=== PATIENT | female | born 1985 ===

== ENCOUNTER 2017-09-22 03:21 | Emergency (ER) | payer OTHER ==
[2017-09-22 03:33] VITALS: RESP 14
[2017-09-22] MEDS ORDERED: Acetaminophen-Codeine 300/30 mg Tab PO STA (03:52)
--- NOTE | 2017-09-22 03:58 | C.PDOC ---
History Of Present Illness 32 year old female presents to the ER with a complaint of a lump to the right side of the vagina for the past 2 days. Patient states the lump and increased in size and has now become painful. Denies trauma or Hx of similar symptoms. Time Seen by Provider: 09/22/17 03:37 Chief Complaint (Nursing): Female Genitourinary History Per: Patient History/Exam Limitations: no limitations Onset/Duration Of Symptoms: Days Current Symptoms Are (Timing): Still Present Quality Of Discomfort: Unable To Describe Associated Symptoms: denies: Fever, Chills, Urinary Symptoms Alleviating Factors: None Recent travel outside of the [place]: No Abnormal Vaginal Bleeding: No Past Medical History Reviewed: Historical Data, Nursing Documentation, Vital Signs Vital Signs: Last Vital Signs Temp 98 F 09/22/17 04:19 Pulse 80 09/22/17 04:19 Resp 14 09/22/17 04:19 BP 110/70 09/22/17 04:19 Pulse Ox 99 09/22/17 04:26 - Medical History PMH: No Chronic Diseases Family History: States: Unknown Family Hx - Social History Hx Tobacco Use: Yes Hx Alcohol Use: Yes Hx Substance Use: No - Immunization History Hx Tetanus Toxoid Vaccination: No Hx Influenza Vaccination: Yes Hx Pneumococcal Vaccination: No Review Of Systems Constitutional: Negative for: Fever, Chills Gastrointestinal: Negative for: Nausea, Vomiting Genitourinary: Positive for: Other (Lump on vagina). Negative for: Vaginal Discharge, Vaginal Bleeding Physical Exam - Physical Exam Appears: Non-toxic Skin: Warm, Dry Head: Atraumatic, Normacephalic Eye(s): bilateral: Normal Inspection Back: Normal Inspection Pelvic: Other (Small indurated tender lump to base of right labia near perineum. No erythema,fluctuance or drainage.) ED Course And Treatment O2 Sat by Pulse Oximetry: 99 (room air) Pulse Ox Interpretation: Normal Progress Note: Motrin and tylenol/codiene administered. Disposition Counseled Patient/Family Regarding: Diagnosis, Need For Followup - Disposition Disposition: HOME/ ROUTINE Disposition Time: 03:53 Condition: STABLE Additional Instructions: Please continue warm compress to area Follow up in [facility] Take meds as directed Return to ER if worse Prescriptions: Acetaminophen with Codeine [Tylenol with Codeine #3 Tablet] 1 each PO PRN PRN # 7 tablet PRN Reason: Pain, Severe (8-10) Cephalexin [Keflex] 500 mg PO QID #28 capsule Ibuprofen [Motrin] 600 mg PO Q6H #20 tab Sulfamethoxazole/Trimethoprim [Bactrim DS 800 mg-160 mg] 1 tab PO BID #14 tab Instructions: Bartholin Cyst (ED) Forms: [employer] (Czech) - Clinical Impression Clinical Impression: Cyst of right Bartholin's gland - PA / [employer]ER / Resident Statement MD/DO has reviewed & agrees with the documentation as recorded. - Scribe Statement The provider has reviewed the documentation as recorded by the Scribe Luis Ramírez All medical record entries made by the Meño were at my direction and personally dictated by me. I have reviewed the chart and agree that the record accurately reflects my personal performance of the history, physical exam, medical decision making, and the department course for this patient. I have also personally directed, reviewed, and agree with the discharge instructions and disposition.
[2017-09-22] MEDS ORDERED: Acetaminophen-Codeine 300/30 mg Tab PO ONE (04:03)
[2017-09-22 04:20] VITALS: BP 110/70; PULSE 80; TEMP 98
[2017-09-22 04:27] VITALS: O2SAT 99
== END 2017-09-22 04:47 | disposition home or self-care (01) ==
LOC: C.ER 03:21
DX: N75.0 Cyst of Bartholin's gland (principal)

== ENCOUNTER 2017-09-23 11:10 | Emergency (ER) | payer OTHER ==
[2017-09-23 11:21] VITALS: RESP 16
--- NOTE | 2017-09-23 13:58 | C.PDOC ---
History Of Present Illness Juve Pereira is a 32 year old female who returns to the ER for evaluation of abscess. Seen here the other day for early abscess on the right outer labia. Patient reports taking antibiotics as prescribed. Complains of pain and bleeding from the abscess today. No fevers or chills. Time Seen by Provider: 09/23/17 12:11 Chief Complaint (Nursing): Abnormal Skin Integrity History Per: Patient History/Exam Limitations: no limitations Onset/Duration Of Symptoms: Days Current Symptoms Are (Timing): Still Present Location Of Injury: Right: Labia Quality Of Symptoms: Draining Past Medical History Reviewed: Historical Data, Nursing Documentation, Vital Signs Vital Signs: Last Vital Signs Temp 98.3 F 09/23/17 14:13 Pulse 88 09/23/17 14:13 Resp 16 09/23/17 14:13 BP 100/58 L 09/23/17 14:13 Pulse Ox 100 09/23/17 22:07 - Medical History PMH: No Chronic Diseases Surgical History: No Surg Hx Family History: States: Unknown Family Hx - Social History Hx Tobacco Use: Yes Hx Alcohol Use: Yes Hx Substance Use: Yes - Immunization History Hx Tetanus Toxoid Vaccination: (unk) Hx Influenza Vaccination: Yes (2016) Hx Pneumococcal Vaccination: (unk) Review Of Systems Constitutional: Negative for: Fever, Chills Skin: Positive for: Other (Abscess to right labia) Physical Exam - Physical Exam Appears: Non-toxic, No Acute Distress Skin: Normal Color, Warm, Other (1 cm round, draining, abscess at distal end of right labia. Able to express purulent drainage.) Gastrointestinal/Abdominal: Soft, No Tenderness Neurological/Psych: Oriented x3, Normal Speech ED Course And Treatment O2 Sat by Pulse Oximetry: 100 (RA) Pulse Ox Interpretation: Normal Medical Decision Making Medical Decision Making: Impression: Pt with draining abscess on outer labia Plan: Advised to use warm compresses, sitz baths, ibuprofen and continue antibiotics. Disposition Counseled Patient/Family Regarding: Diagnosis, Need For Followup - Disposition Referrals: [facility] [Outside] [facility] [Outside] Disposition: HOME/ ROUTINE Disposition Time: 13:56 Condition: IMPROVED Additional Instructions: [place] use sitz baths or apply warm compresses to affected area to promote further drainage. Finish all antibiotics, Take ibuprofen for pain. Follow up with CIGARETTE EXAMINER; call for an appointment. Forms: [facility] (Equatorial [place]an), General Discharge Instructions - Clinical Impression Clinical Impression: Abscess - PA / CRITICAL CARE RN / Resident Statement MD/DO has reviewed & agrees with the documentation as recorded. - Scribe Statement The provider has reviewed the documentation as recorded by the Scribe (Edna Peace) All medical record entries made by the Scribe were at my direction and personally dictated by me. I have reviewed the chart and agree that the record accurately reflects my personal performance of the history, physical exam, medical decision making, and the department course for this patient. I have also personally directed, reviewed, and agree with the discharge instructions and disposition.
[2017-09-23 14:17] VITALS: BP 100/58; PULSE 88; TEMP 98.3; O2SAT 100
== END 2017-09-23 14:12 | disposition home or self-care (01) ==
LOC: C.ER 11:10
DX: N76.4 Abscess of vulva (principal); Z87.891 Personal history of nicotine dependence

== ENCOUNTER 2017-09-25 20:42 | Emergency (ER) | payer OTHER ==
[2017-09-25 21:13] VITALS: BP 98/66; PULSE 78; TEMP 98.6; O2SAT 100
--- NOTE | 2017-09-25 21:42 | C.PDOC ---
History Of Present Illness Patient is a 32 y/o female who presents to the ED with a complaint of a possible allergic reaction to antibiotics since Monday. Patient reports to currently be taking Keflex and Bactrim; reports that 2 days after beginning medications, patient felt tightness around facial area and minimal swelling. Denies SOB or CP. No other physical complaints at this time. Time Seen by Provider: 09/25/17 21:16 Chief Complaint (Nursing): Allergic Reaction History Per: Patient History/Exam Limitations: no limitations Onset/Duration Of Symptoms: Days (since Monday) Current Symptoms Are (Timing): Still Present Possible Cause: Medication (Keflex and Bactrim) Associated Symptoms: Swelling (facial area) Recent travel outside of the [place]: No Additional History Per: Patient Past Medical History Reviewed: Historical Data, Nursing Documentation, Vital Signs Vital Signs: Last Vital Signs Temp 98.6 F 09/25/17 21:12 Pulse 78 09/25/17 21:12 Resp 20 09/25/17 22:00 BP 98/66 L 09/25/17 21:12 Pulse Ox 100 09/25/17 23:03 - Medical History PMH: No Chronic Diseases Surgical History: No Surg Hx Family History: States: No Known Family Hx - Social History Hx Tobacco Use: Yes Hx Alcohol Use: Yes Hx Substance Use: Yes - Immunization History Hx Tetanus Toxoid Vaccination: No Hx Influenza Vaccination: Yes Hx Pneumococcal Vaccination: No Review Of Systems Cardiovascular: Positive for: Edema (to facial area). Negative for: Chest Pain Respiratory: Negative for: Shortness of Breath Skin: Positive for: Other ("tightness" to facial area) Physical Exam - Physical Exam Appears: Well, Non-toxic, No Acute Distress Skin: Normal Color, Dry (facial area), No Rash Head: Atraumatic, Normacephalic Eye(s): bilateral: Normal Inspection, PERRL, EOMI, Other (minimal swelling to infraorbital areas bilaterally) Oral Mucosa: Moist Tongue: Normal Appearing, No Swelling Lips: Normal Appearing, No Swelling Throat: Normal Chest: Symmetrical Cardiovascular: Rhythm Regular, No Murmur Respiratory: Normal Breath Sounds, No Rales, No Rhonchi, No Wheezing Neurological/Psych: Oriented x3, Normal Speech, Normal Cognition ED Course And Treatment O2 Sat by Pulse Oximetry: 100 (room air) Pulse Ox Interpretation: Normal Progress Note: Benadryl administered. On Re-eval, patient is in no distress. Patient is advised to stop Bactrim first to see if symtoms subside; if symptoms worsen, patient is advised to stop Keflex. Benadryl is to be taken with mild symptoms. Patient to be discharged. Disposition - Disposition Disposition: HOME/ ROUTINE Disposition Time: 21:39 Condition: STABLE Additional Instructions: D/C bactrim first continue keflex Take PO benadryl If moderate face / lip or tongue swelling, difficulty breathing you may stop the other antibiotic ( Cephalexin as well) Please follow up with PMD Return to ER if worse Prescriptions: DiphenhydrAMINE [Benadryl] 25 mg PO TID #14 cap Instructions: Allergies (ED) Forms: [employer] (Icelandic) - Clinical Impression Clinical Impression: Minor allergic reaction - Scribe Statement The provider has reviewed the documentation as recorded by the Scribe Yessica Osuna All medical record entries made by the Scribe were at my direction and personally dictated by me. I have reviewed the chart and agree that the record accurately reflects my personal performance of the history, physical exam, medical decision making, and the department course for this patient. I have also personally directed, reviewed, and agree with the discharge instructions and disposition.
[2017-09-25 22:01] VITALS: RESP 20
== END 2017-09-25 22:00 | disposition home or self-care (01) ==
LOC: C.ER 20:42
DX: T78.40XA Allergy, unspecified, initial encounter (principal); Z87.891 Personal history of nicotine dependence

== ENCOUNTER 2018-11-23 18:20 | Emergency (ER) | payer OTHER ==
[2018-11-23 18:24] VITALS: BMI 21.7
[2018-11-23 18:28] VITALS: RESP 18
--- NOTE | 2018-11-23 18:59 | C.PDOC ---
History Of Present Illness 33yo female, otherwise well, comes to ER reporting chills, bodyaches, and vomiting x 2 days. Patient has been taking OTC medications with no relief of symptoms. Patient denies any recent travels but states a coworker was recently ill. No additional medical complaints. PMD: None Time Seen by Provider: 11/23/18 18:39 Chief Complaint (Nursing): Abdominal Pain History Per: Patient History/Exam Limitations: no limitations Onset/Duration Of Symptoms: Days (2) Current Symptoms Are (Timing): Still Present Sick Contacts (Context): Individual(s) At Work Associated Symptoms: Fever, Chills, Myalgias, Vomiting Additional History Per: Patient Past Medical History Reviewed: Historical Data, Nursing Documentation, Vital Signs Vital Signs: Last Vital Signs Temp 98.5 F 11/23/18 18:24 Pulse 90 11/23/18 18:24 Resp 18 11/23/18 18:24 BP 102/65 11/23/18 18:24 Pulse Ox 96 11/23/18 18:24 - Medical History PMH: No Chronic Diseases Surgical History: No Surg Hx Family History: States: No Known Family Hx - Social History Hx Tobacco Use: Yes Hx Alcohol Use: No Hx Substance Use: No - Immunization History Hx Tetanus Toxoid Vaccination: No Hx Influenza Vaccination: No Hx Pneumococcal Vaccination: No Review Of Systems Except As Marked, All Systems Reviewed And Found Negative. Cardiovascular: Negative for: Chest Pain Respiratory: Negative for: Shortness of Breath Physical Exam - Physical Exam Additional Physical Exam Comments: Constitutional: No acute distress. Head: Normocephalic. Atraumatic. Eyes: PERRL. ENT: Moist mucous membranes. Neck: Supple. Cardiovascular: Regular rate. Radial pulse 2+ bilaterally. Chest: No tenderness. Respiratory: Clear to auscultation bilaterally. GI: Soft. Nontender. Nondistended. Back: No CVA tenderness. Musculoskeletal: No tenderness or swelling of extremities. Skin: No rash. Neurologic: Alert, no focal deficit. ED Course And Treatment - Laboratory Results Result Diagrams: 11/23/18 19:30 11/23/18 19:30 O2 Sat by Pulse Oximetry: 96 (RA) Pulse Ox Interpretation: Normal Medical Decision Making Medical Decision Mak[place] female with flu like illness Plan: -- Labs -- IV Fluids -- Rapid flu -- Zofran 8mg IV -- Toradol 30mg IV Labs unremarkable. CXR no pneumonia. Discharged home, continue supportive care, return to ED for worsening pain, lethargy, vomiting, dyspnea, or any other problem. Disposition - Disposition Referrals: [facility] [Outside] Disposition: HOME/ ROUTINE Disposition Time: 21:17 Condition: STABLE Prescriptions: Ibuprofen [Motrin] 1 tab PO Q6 #30 tab Ondansetron ODT [Zofran ODT] 4 mg PO Q8 #12 odt Instructions: Viral Syndrome (DC) Forms: [email or web address] (Liberian) - Clinical Impression Clinical Impression: Influenza-like illness - Scribe Statement The provider has reviewed the documentation as recorded by the Meño Bardales Provider Attestation: All medical record entries made by the Meño were at my direction and personally dictated by me. I have reviewed the chart and agree that the record accurately reflects my personal performance of the history, physical exam, medical decision making, and the department course for this patient. I have also personally directed, reviewed, and agree with the discharge instructions and disposition.
[2018-11-23] MEDS ORDERED: Sodium Chloride 0.9% 1,000 ML IV STA (19:01)
[2018-11-23 19:04] LABS: SQUAMOUS EPITHIAL 2 /hpf (0-5); URINE BILIRUBIN NEGATIVE (NEGATIVE); URINE BLOOD NEGATIVE (NEGATIVE); URINE CLARITY Hazy (Clear); URINE COLOR Amber (YELLOW); URINE GLUCOSE (UA) NORMAL (Normal); URINE LEUKOCYTE ESTERASE TRACE Leu/uL (Negative); URINE PROTEIN 1+ mg/dL (NEGATIVE)
[2018-11-23] MEDS ORDERED: Sodium Chloride 0.9% 1,000 ML ONE (19:24)
[2018-11-23 19:33] LABS: BASO % 0.6 % (0.0-2.0); EOS # 0.1 K/uL (0.0-0.7); EOS % 1.3 % (0.0-4.0); HEMOGLOBIN 12.5 g/dL (11.0-16.0); LYMPH # 1.5 K/uL (1.0-4.3); MEAN CELL VOLUME 93.1 fL (81.0-99.0); MEAN CORPUSCULAR HEMOGLOBIN 30.2 pg (27.0-31.0); MEAN CORPUSCULAR HGB CONC 32.4 g/dL (33.0-37.0); MEAN PLATELET VOLUME 8.9 fL (7.2-11.7); MONO # 0.6 K/uL (0.0-0.8); MONO % 14.2 % (0.0-10.0); NEUT # 2.1 K/uL (1.8-7.0); NEUT % 49.9 % (50.0-75.0); NRBC % 0.1 % (0.0-2.0); RBC 4.15 Mil/uL (3.80-5.20); RED CELL DISTRIBUTION WIDTH 12.6 % (11.5-14.5); WHITE BLOOD COUNT 4.3 K/uL (4.8-10.8)
[2018-11-23 19:44] LABS: ALB/GLOB RATIO 1.4 (1.0-2.1); ALBUMIN 4.5 g/dL (3.5-5.0); ALT/SGPT 25 U/L (9-52); AST/SGOT 31 U/L (14-36); BLOOD UREA NITROGEN 8 mg/dL (7-17); CALCIUM 8.8 mg/dl (8.6-10.4); GFR NON-AFRICAN AMERICAN > 60; LIPASE 65 U/L (23-300)
[2018-11-23 21:33] VITALS: BP 108/74; PULSE 82; TEMP 98.6
[2018-11-23 22:57] VITALS: O2SAT 96
--- NOTE | 2018-11-24 13:49 | RAD ---
Date of service: 11/23/2018 HISTORY: cough COMPARISON: No prior. TECHNIQUE: Chest PA and lateral FINDINGS: LUNGS: No active pulmonary disease. PLEURA: No significant pleural effusion identified. No pneumothorax apparent. CARDIOVASCULAR: No aortic atherosclerotic calcification present. Normal cardiac size. No pulmonary vascular congestion. OSSEOUS STRUCTURES: No significant abnormalities. VISUALIZED UPPER ABDOMEN: Normal. OTHER FINDINGS: None. IMPRESSION: NO RADIOGRAPHIC EVIDENCE OF PNEUMONIA
== END 2018-11-23 21:32 | disposition home or self-care (01) ==
LOC: C.ER 18:20
DX: J11.1 Influenza due to unidentified influenza virus with other respiratory manifestations (principal)
CPT/HCPCS: 71046; 80053; 81001; 81025; 83690; 85025; 87086; 87804; 96361; 96374; 96375; 99284; J1885; J2405; J7030

== ENCOUNTER 2018-12-05 10:06 | Emergency (ER) | payer OTHER ==
[2018-12-05 10:06] VITALS: BMI 21.7
[2018-12-05 11:06] LABS: HCG,QUALITATIVE URINE NEGATIVE (NEGATIVE)
[2018-12-05 11:10] LABS: SQUAMOUS EPITHIAL 7 /hpf (0-5); URINE BILIRUBIN 1+ (NEGATIVE); URINE BLOOD NEGATIVE (NEGATIVE); URINE CLARITY Hazy (Clear); URINE COLOR Yellow (YELLOW); URINE GLUCOSE (UA) NORMAL (Normal); URINE LEUKOCYTE ESTERASE NEG Leu/uL (Negative); URINE PROTEIN 1+ mg/dL (NEGATIVE); URINE UROBILINOGEN NORMAL mg/dL (0.2-1.0)
[2018-12-05 11:44] LABS: BARBITURATES, UR NEGATIVE (NEGATIVE); BENZODIAZEPINES, UR NEGATIVE (NEGATIVE); OPIATES, UR NEGATIVE (NEGATIVE); PHENCYCLIDINE, UR NEGATIVE (NEGATIVE)
--- NOTE | 2018-12-05 12:31 | MRI ---
Date of service: 12/05/2018 PROCEDURE: MR LUMBAR SPINE WITHOUT CONTRAST HISTORY: Left lower back pain and numbness COMPARISON: None available. TECHNIQUE: Multiecho multiplanar sequences were performed through the lumbar spine without the use of intravenous contrast. FINDINGS: There is normal alignment of the lumbar vertebral bodies. There is normal lumbar lordosis. There is no acute fracture, spondylolysis or spondylolisthesis. Bone marrow signal is within normal limits. The conus medullaris terminates at a normal level and the nerve roots of cauda equina are normal. There is degeneration of the L5-S1 disc with mild reduced disc height. The remaining disc heights and signal intensity are maintained. T12-L1: No disc herniation, spinal canal stenosis or neural foraminal narrowing. L1-2: No disc herniation, spinal canal stenosis or neural foraminal narrowing. L2-3: No disc herniation, spinal canal stenosis or neural foraminal narrowing. L3-4: No disc herniation, spinal canal stenosis or neural foraminal narrowing. L4-5: Mild posterior disc bulge without central spinal canal stenosis. Mild bilateral facet arthropathy without neural foraminal narrowing. L5-S1: Large left paracentral and posterolateral disc protrusion impinges the traversing left S1 nerve root. No central spinal canal stenosis. Mild bilateral facet arthropathy contribute to mild the left neural foraminal narrowing. OTHER FINDINGS: The paraspinous soft tissues are normal. Imaged portion of the retroperitoneum is within normal limits. IMPRESSION: Large left paracentral and posterolateral disc protrusion impinges the traversing left S1 nerve root. No central spinal canal stenosis or neural foraminal narrowing.
[2018-12-05 13:07] VITALS: TEMP 98
--- NOTE | 2018-12-05 13:19 | C.PDOC ---
History Of Present Illness 33 y/o female otherwise well presents to the ED complaining of excruciating back pain, worsening for the past 4-5 days. States she went to see a physician/chiropractor on 2 days ago, who gave her two injections to the left paraspinal/lumbar region. Patient was told they were steroid injections, and that it would take 1-2 days to kick in. Yesterday the pain continued. Today she awoke with worsened pain, now radiating down the left leg with associated numbness. She reports 10/10 pain in the low back and left leg. States today she is unable to stand, and only tolerates lying flat on the floor. Otherwise she denies any extremity weakness, dysuria, frequency, incontinence, fever, neck pain/stiffness, nausea, or vomiting. Time Seen by Provider: 12/05/18 10:23 Chief Complaint (Nursing): Back Pain History Per: Patient History/Exam Limitations: no limitations Onset/Duration Of Symptoms: Days (4) Current Symptoms Are (Timing): Worse Severity: Severe Pain Scale Rating Of: 10 Associated Symptoms: New Numbness (down left leg) Exacerbating Factor(s): Movement, Standing Past Medical History Reviewed: Historical Data, Nursing Documentation, Vital Signs Vital Signs: Last Vital Signs Temp 98.0 F 12/05/18 13:07 Pulse 58 L 12/05/18 13:07 Resp 18 12/05/18 13:07 BP 104/64 12/05/18 13:07 Pulse Ox 100 12/05/18 13:07 - Medical History PMH: No Chronic Diseases Surgical History: No Surg Hx Family History: States: Unknown Family Hx - Social History Hx Tobacco Use: Yes Hx Alcohol Use: No Hx Substance Use: No - Immunization History Hx Tetanus Toxoid Vaccination: No Hx Influenza Vaccination: No Hx Pneumococcal Vaccination: No Review Of Systems Except As Marked, All Systems Reviewed And Found Negative. Constitutional: Negative for: Fever, Chills Cardiovascular: Negative for: Chest Pain Respiratory: Negative for: Shortness of Breath Gastrointestinal: Negative for: Vomiting, Abdominal Pain Genitourinary: Negative for: Dysuria, Frequency, Incontinence Musculoskeletal: Positive for: Back Pain, Leg Pain (left). Negative for: Neck Pain (or stiffness) Neurological: Positive for: Numbness (left leg). Negative for: Weakness, Dizziness Physical Exam - Physical Exam Appears: Non-toxic, In Acute Distress (moderate painful distress) Skin: Normal Color, Warm, No Rash Head: Atraumatic, Normacephalic Eye(s): bilateral: Normal Inspection, PERRL, EOMI Oral Mucosa: Moist Neck: Normal ROM Chest: Symmetrical Cardiovascular: Rhythm Regular, No Murmur Respiratory: Normal Breath Sounds, No Accessory Muscle Use Gastrointestinal/Abdominal: Soft, No Tenderness, No Distention Back: No Vertebral Tenderness, Paraspinal Tenderness (Left paralumbar tenderness), Other (No erythema or swelling to injection site) Extremity: Bilateral: Atraumatic, No Pedal Edema, Normal Color And Temperature Neurological/Psych: Oriented x3, Normal Cranial Nerves, Normal Motor, Normal Sensation, Other (No focal deficits) Gait: Unable To Assess ED Course And Treatment - Laboratory Results Lab Results: Urine Color Yellow (YELLOW) 12/05/18 09:00 Urine Clarity Hazy (Clear) 12/05/18 09:00 Urine pH 5.0 (5.0-8.0) 12/05/18 09:00 Ur Specific [place] 1.034 (1.003-1.030) H 12/05/18 09:00 Urine Protein 1+ mg/dL (NEGATIVE) H 12/05/18 09:00 Urine Glucose (UA) Normal mg/dL (Normal) 12/05/18 09:00 Urine Ketones Negative mg/dL (NEGATIVE) 12/05/18 09:00 Urine Blood Negative (NEGATIVE) 12/05/18 09:00 Urine Nitrate Negative (NEGATIVE) 12/05/18 09:00 Urine Bilirubin 1+ (NEGATIVE) H 12/05/18 09:00 Urine Urobilinogen Normal mg/dL (0.2-1.0) 12/05/18 09:00 Ur Leukocyte Esterase Neg [place]/uL (Negative) 12/05/18 09:00 Urine WBC (Auto) 3 /hpf (0-5) 12/05/18 09:00 Urine RBC (Auto) 3 /hpf (0-3) 12/05/18 09:00 Ur Squamous Epith Cells 7 /hpf (0-5) H 12/05/18 09:00 Urine HCG, Qual Negative (NEGATIVE) 12/05/18 09:00 Urine HCG, Qual Negative (NEGATIVE) 12/05/18 09:00 Urine POC: Negative O2 Sat by Pulse Oximetry: 100 (RA) Pulse Ox Interpretation: Normal - CT Scan/US MRI - Spinal Canal Other Rad Studies (CT/US): Read By Radiologist, Radiology Report Reviewed CT/US Interpretation: Accession No. : [id number]. Patient Name / ID : DALTON LOREDO / [id number]. Exam Date : 12/05/2018 11:37:45 ( Approved ). Study Comment : Sex / Age : F / 33Y. Creator : Rebecca Holm MD. Dictator : Rebecca Holm MD. History Instructor : Exhaust And Muffler Fitter : Rebecca Holm MD. Approver2 : Report Date : 12/05/2018 12:28:07. My Comment : . Date of service: 12/05/2018. PROCEDURE: MR LUMBAR SPINE WITHOUT CONTRAST. HISTORY: Left lower back pain and numbness. COMPARISON: None available. TECHNIQUE: Multiecho multiplanar sequences were performed through the lumbar spine without the use of intravenous contrast. FINDINGS: There is normal alignment of the lumbar vertebral bodies. There is normal lumbar lordosis. There is no acute fracture, spondylolysis or spondylolisthesis. Bone marrow signal is within normal limits. The conus medullaris terminates at a normal level and the nerve roots of cauda equina are normal. There is deg eneration of the L5-S1 disc with mild reduced disc height. The remaining disc heights and signal intensity are maintained. T12-L1: No disc herniation, spinal canal stenosis or neural foraminal narrowing. L1-2: No disc herniation, spinal canal stenosis or neural foraminal narrowing. L2-3: No disc herniation, spinal canal stenosis or neural foraminal narrowing. L3-4: No disc herniation, spinal canal stenosis or neural foraminal narrowing. L4-5: Mild posterior disc bulge without central spinal canal stenosis. Mild bilateral facet arthropathy without neural foraminal narrowing. L5-S1: Large left paracentral and posterolateral disc protrusion impinges the traversing left S1 nerve root. No central spinal canal stenosis. Mild bilateral facet arthropathy contribute to mild the left neural foraminal narrowing. OTHER FINDINGS: The paraspinous soft tissues are normal. Imaged portion of the retroperitoneum is within normal limits. IMPRESSION: Large left paracentral and posterolateral disc protrusion impinges the traversing left S1 nerve root. No central spinal canal stenosis or neural foraminal narrowing. Medical Decision Making Medical Decision Making: Impression: Low back pain, Left leg pain and numbness Plan: - Urinalysis - Urine culture - UDS - MRI Spinal Canal - 600 mg PO Motrin - 50 mg PO Tramadol - 5 mg PO Valium - Reassess Progress: MRI report reviewed, indicative of bulging disc. Discussed with patient. On reevaluation patient is still complaining of pain. Lidoderm patch applied. Discussed with Dr. Rogers, who recommends Dr. Catalan for neurosurgery follow up. 13:[address] Catalan to help arrange follow up. 13:25 Still pending call back from Dr. Catalan. 13:30 Paged neurosurg on-call, Dr. Dominguez/[facility]. 13:[address] Sharon Wright, paint stock clerk, who took patients information and agreed to see patient in the office today. Ordered 2 mg IV Morphine for pain control. Disposition Discussed With .: Sharon Wright Doctor Will See Patient In The: Office Counseled Patient/Family Regarding: Studies Performed, Diagnosis, Need For Followup - Disposition Referrals: Sharon Wright MD [Staff Provider] - Disposition: HOME/ ROUTINE Disposition Time: 14:58 Condition: STABLE Additional Instructions: [facility] [address] [place] [address] Prescriptions: diaZEpam [Valium] 5 mg PO TID #12 tab Ibuprofen [Motrin] 600 mg PO TID #15 tab Instructions: Low Back Pain in Adults Forms: [facility] ([place]inean), General Discharge Instructions - POA Present On Arrival: None - Clinical Impression Clinical Impression: Sciatica, Lumbar radiculopathy - Scribe Statement The provider has reviewed the documentation as recorded by the Meño Peace Provider Attestation: All medical record entries made by the Bryanibgene were at my direction and personally dictated by me. I have reviewed the chart and agree that the record accurately reflects my personal performance of the history, physical exam, medical decision making, and the department course for this patient. I have also personally directed, reviewed, and agree with the discharge instructions and disposition.
[2018-12-05] MEDS ORDERED: Lidocaine 5% Patch TD STA (13:22)
[2018-12-05] MEDS ORDERED: Lidocaine 5% Patch TD ONE (13:23)
[2018-12-05 15:13] VITALS: BP 110/72; PULSE 72; RESP 20; O2SAT 99
[2018-12-06] MEDS ORDERED: Lidocaine 5% Patch TD SCH (10:00)
== END 2018-12-05 15:12 | disposition home or self-care (01) ==
LOC: C.ER 10:06
DX: M54.30 Sciatica, unspecified side (principal); M54.16 Radiculopathy, lumbar region
CPT/HCPCS: 72148; 80324; 80345; 80346; 80349; 80353; 80358; 80361; 81001; 81025; 83992; 84703; 96374; 99284; J2270

== ENCOUNTER 2019-01-23 11:34 | Emergency (ER) | payer OTHER ==
[2019-01-23 11:35] VITALS: BMI 21.7
[2019-01-23 11:53] VITALS: RESP 18; O2SAT 99
[2019-01-23] MEDS ORDERED: Iohexol 240 (50 ml) PO STA (11:59)
[2019-01-23] MEDS ORDERED: Sodium Chloride 0.9% 1,000 ML IV STA (11:59)
[2019-01-23] MEDS ORDERED: Iohexol 240 (50 ml) ONE (12:46)
[2019-01-23 12:55] LABS: RED CELL DISTRIBUTION WIDTH 13.5 % (11.5-14.5)
[2019-01-23 12:59] LABS: BASO % 0.1 % (0.0-2.0); EOS % 0.1 % (0.0-4.0); HEMOGLOBIN 12.3 g/dL (11.0-16.0); LYMPH # 1.2 K/uL (1.0-4.3); LYMPH % 5.9 % (20.0-40.0); MEAN CORPUSCULAR HEMOGLOBIN 31.8 pg (27.0-31.0); MEAN CORPUSCULAR HGB CONC 33.4 g/dL (33.0-37.0); MEAN PLATELET VOLUME 8.4 fL (7.2-11.7); MONO # 1.1 K/uL (0.0-0.8); MONO % 5.3 % (0.0-10.0); NEUT # 18.1 K/uL (1.8-7.0); NEUT % 88.6 % (50.0-75.0); PLATELET COUNT 198 K/uL (130-400); RBC 3.88 Mil/uL (3.80-5.20)
[2019-01-23 13:01] LABS: MEAN CELL VOLUME 95.1 fL (81.0-99.0); WHITE BLOOD COUNT 20.4 K/uL (4.8-10.8)
[2019-01-23 13:07] LABS: ALB/GLOB RATIO 1.5 (1.0-2.1); ALBUMIN 4.4 g/dL (3.5-5.0); ALT/SGPT 25 U/L (9-52); AST/SGOT 25 U/L (14-36); BLOOD UREA NITROGEN 18 mg/dL (7-17); CALCIUM 9.5 mg/dl (8.6-10.4); GFR NON-AFRICAN AMERICAN > 60; LIPASE 25 U/L (23-300)
[2019-01-23 13:33] LABS: HCG,QUALITATIVE URINE NEGATIVE (NEGATIVE)
[2019-01-23 13:35] LABS: SQUAMOUS EPITHIAL 2 /hpf (0-5); URINE BILIRUBIN NEGATIVE (NEGATIVE); URINE BLOOD NEGATIVE (NEGATIVE); URINE CLARITY Clear (Clear); URINE COLOR Yellow (YELLOW); URINE GLUCOSE (UA) NORMAL (Normal); URINE LEUKOCYTE ESTERASE TRACE Leu/uL (Negative); URINE PROTEIN 1+ mg/dL (NEGATIVE)
[2019-01-23 13:38] LABS: BANDS 2 % (0-2); HYPOCHROMIC SLIGHT; LYMPHOCYTE 5 % (20-40); MONOCYTE 4 % (0-10); NEUTROPHIL 89 % (50-75); PLATELET ESTIMATE NORMAL (NORMAL); TOTAL CELLS COUNTED 100
[2019-01-23 13:39] LABS: ANISOCYTOSIS SLIGHT; POIKILOCYTOSIS SLIGHT
[2019-01-23] MEDS ORDERED: Iodixanol 320 MG/ML 100 ML BOTTLE IV ONE (14:30)
--- NOTE | 2019-01-23 15:22 | C.PDOC ---
History Of Present Illness 33 y/o female comes in to ED complaining she doesnt feel good. Patient states she felt nauseous and vomited last night, and had a fever. Also complains of generalized bodyache and headache. Denies any chest pain, SOB, abdominal pain, diarrhea, or other complaints. Time Seen by Provider: 01/23/19 11:45 Chief Complaint (Nursing): GI Problem History Per: Patient History/Exam Limitations: no limitations Onset/Duration Of Symptoms: Hrs Current Symptoms Are (Timing): Still Present Past Medical History Reviewed: Historical Data, Nursing Documentation, Vital Signs Vital Signs: Last Vital Signs Temp 98.2 F 01/23/19 11:50 Pulse 126 H 01/23/19 11:50 Resp 18 01/23/19 11:50 BP 109/72 01/23/19 11:50 Pulse Ox 99 01/23/19 11:50 - Medical History PMH: Back Problems Family History: States: No Known Family Hx - Social History Hx Tobacco Use: Yes Hx Alcohol Use: No Hx Substance Use: No - Immunization History Hx Tetanus Toxoid Vaccination: No Hx Influenza Vaccination: No Hx Pneumococcal Vaccination: No Review Of Systems Except As Marked, All Systems Reviewed And Found Negative. Constitutional: Positive for: Fever, Other (bodyaches) Cardiovascular: Negative for: Chest Pain Respiratory: Negative for: Cough, Shortness of Breath Gastrointestinal: Positive for: Nausea, Vomiting. Negative for: Abdominal Pain, Diarrhea Neurological: Positive for: Headache Physical Exam - Physical Exam Appears: Non-toxic, No Acute Distress Skin: Warm, Dry Head: Atraumatic, Normacephalic Eye(s): bilateral: Normal Inspection Oral Mucosa: Moist Neck: Supple Cardiovascular: Rhythm Regular, No Murmur Respiratory: Normal Breath Sounds, No Rales, No Rhonchi, No Wheezing Gastrointestinal/Abdominal: Soft, No Tenderness Extremity: Bilateral: Atraumatic, Normal ROM Neurological/Psych: Oriented x3, Normal Speech, Normal Cognition ED Course And Treatment - Laboratory Results Result Diagrams: 01/23/19 12:48 01/23/19 12:48 Lab Results: Total Bilirubin 1.4 mg/dL (0.2-1.3) H 01/23/19 12:48 AST 25 U/L (14-36) 01/23/19 12:48 ALT 25 U/L (9-52) 01/23/19 12:48 Alkaline Phosphatase 61 U/L (38-126) 01/23/19 12:48 Total Protein 7.4 g/dL (6.3-8.3) 01/23/19 12:48 Albumin 4.4 g/dL (3.5-5.0) 01/23/19 12:48 Globulin 3.0 gm/dL (2.2-3.9) 01/23/19 12:48 Albumin/Globulin Ratio 1.5 (1.0-2.1) 01/23/19 12:48 Lipase 25 U/L (23-300) 01/23/19 12:48 Urine Color Yellow (YELLOW) 01/23/19 13:27 Urine Clarity Clear (Clear) 01/23/19 13:27 Urine pH 8.0 (5.0-8.0) 01/23/19 13:27 Ur Specific [place] 1.027 (1.003-1.030) 01/23/19 13:27 Urine Protein 1+ mg/dL (NEGATIVE) H 01/23/19 13:27 Urine Glucose (UA) Normal mg/dL (Normal) 01/23/19 13:27 Urine Ketones Trace mg/dL (NEGATIVE) 01/23/19 13:27 Urine Blood Negative (NEGATIVE) 01/23/19 13:27 Urine Nitrate Negative (NEGATIVE) 01/23/19 13:27 Urine Bilirubin Negative (NEGATIVE) 01/23/19 13:27 Urine Urobilinogen 2.0 mg/dL (0.2-1.0) H 01/23/19 13:27 Ur Leukocyte Esterase Trace [place]/uL (Negative) 01/23/19 13:27 Urine WBC (Auto) 19 /hpf (0-5) H 01/23/19 13:27 Urine RBC (Auto) 3 /hpf (0-3) 01/23/19 13:27 Ur Squamous Epith Cells 2 /hpf (0-5) 01/23/19 13:27 Urine HCG, Qual Negative (NEGATIVE) 01/23/19 13:27 Urine HCG, Qual Negative (NEGATIVE) 01/23/19 13:27 O2 Sat by Pulse Oximetry: 99 (RA) Pulse Ox Interpretation: Normal - CT Scan/US Abd/Pel CT Other Rad Studies (CT/US): Read By Radiologist, Radiology Report Reviewed CT/US Interpretation: FINDINGS: LOWER THORAX: The visualized lungs are clear. LIVER: Mild hepatomegaly and fatty liver. Normal homogeneous enhancement. No gross lesion or ductal dilatation. GALLBLADDER AND BILE DUCTS: Well distended. No calcified gallstones, wall thickening or pericholecystic fluid. PANCREAS: Normal in size with homogeneous enhancement. No gross lesion or ductal dilatation. SPLEEN: Normal in size and appearance. ADRENALS: No discrete nodule. KIDNEYS AND URETERS: Normal in size with homogeneous enhancement. No hydronephrosis. No solid mass. VASCULATURE: No aortic aneurysm. There are no aortic atherosclerotic calcifications or mural plaque present. BOWEL: Evaluat ion of the bowel is limited in the absence of oral contrast. The small bowel loops are normal in caliber. The colon is grossly normal in appearance. No bowel wall thickening or obstruction. APPENDIX: Normal appendix. PERITONEUM: No free fluid. No free air. LYMPH NODES: No enlarged lymph nodes. BLADDER: Well distended and normal in appearance. REPRODUCTIVE: The uterus is normal in size. BONES: No acute fracture. Within normal limits for the patient's age. OTHER FINDINGS: None. IMPRESSION: No acute abdominal or pelvic abnormality. Progress Note: Labs and UA ordred. Patient tested for flu, was negative. CT of abdomen/pelvis ordered. Patient given IV fluids and omnipaque PO. Administered toradol and zofran. Patient was evaluated at bedside by ED attending . On re-evaluation patient feels better and requested to be d/c home. She was instructed to f/u with PMD within 1-2 days and to return to ED immediately if she feels worse. Disposition - Disposition Disposition: AGAINST MEDICAL ADVICE Disposition Time: 16:18 Condition: STABLE Additional Instructions: Follow up in Clinic within 1-2 days. Return to ED immediately if feel worse. Prescriptions: Nitrofurantoin Macrocrystals [Macrobid] 1 cap PO BID #14 cap Instructions: Urinary Tract Infections in Adults, Acute Abdomen (Belly Pain) Forms: [facility] (Danish) - Clinical Impression Clinical Impression: Abdominal pain, Body aches, Leucocytosis, UTI (urinary tract infection) - PA / SEDIMENT REMEDIATION CONSULTANT / Resident Statement MD/DO has reviewed & agrees with the documentation as recorded. - Scribe Statement The provider has reviewed the documentation as recorded by the Scribe Mary John All medical record entries made by the Bryanibgene were at my direction and personally dictated by me. I have reviewed the chart and agree that the record accurately reflects my personal performance of the history, physical exam, medical decision making, and the department course for this patient. I have also personally directed, reviewed, and agree with the discharge instructions and disposition.
--- NOTE | 2019-01-23 15:33 | CT ---
Date of service: 01/23/2019 PROCEDURE: CT Abdomen and Pelvis with contrast HISTORY: Abdominal pain/vomiting COMPARISON: None available. TECHNIQUE: CT scan of the abdomen and pelvis was performed after administration of intravenous contrast. Oral contrast was administered. Coronal and sagittal reformatted images were obtained. Contrast dose: 100 mL Visipaque 320 Radiation dose: Total exam DLP = 261.74 mGy-cm. This CT exam was performed using one or more of the following dose reduction techniques: Automated exposure control, adjustment of the mA and/or kV according to patient size, and/or use of iterative reconstruction technique. FINDINGS: LOWER THORAX: The visualized lungs are clear. LIVER: Mild hepatomegaly and fatty liver. Normal homogeneous enhancement. No gross lesion or ductal dilatation. GALLBLADDER AND BILE DUCTS: Well distended. No calcified gallstones, wall thickening or pericholecystic fluid. PANCREAS: Normal in size with homogeneous enhancement. No gross lesion or ductal dilatation. SPLEEN: Normal in size and appearance. ADRENALS: No discrete nodule. KIDNEYS AND URETERS: Normal in size with homogeneous enhancement. No hydronephrosis. No solid mass. VASCULATURE: No aortic aneurysm. There are no aortic atherosclerotic calcifications or mural plaque present. BOWEL: Evaluation of the bowel is limited in the absence of oral contrast. The small bowel loops are normal in caliber. The colon is grossly normal in appearance. No bowel wall thickening or obstruction. APPENDIX: Normal appendix. PERITONEUM: No free fluid. No free air. LYMPH NODES: No enlarged lymph nodes. BLADDER: Well distended and normal in appearance. REPRODUCTIVE: The uterus is normal in size. BONES: No acute fracture. Within normal limits for the patient's age. OTHER FINDINGS: None. IMPRESSION: No acute abdominal or pelvic abnormality.
[2019-01-23 16:11] VITALS: BP 103/68; PULSE 104; TEMP 98.4
== END 2019-01-23 16:44 | disposition left against medical advice (07) ==
LOC: C.ER 11:34
DX: N39.0 Urinary tract infection, site not specified (principal); D72.829 Elevated white blood cell count, unspecified; R10.9 Unspecified abdominal pain; Z72.0 Tobacco use
CPT/HCPCS: 74177; 80053; 81001; 81025; 82550; 83690; 83735; 84703; 85025; 87804; 96374; 96375; 99285; J1885; J2405; J7030; Q9966; Q9967